=== PATIENT | male | born 1975 | race Two or more races ===

== ENCOUNTER 2016-08-10 16:17 | Observation (INO) | payer SELFPAY ==
[~2016-08-10] VITALS: Ht 170.2 cm; Wt 74.8 kg
[2016-08-10] MEDS ORDERED: DIPHTH,PERTUSS(ACELL),TET TOX 0.5 ML DISP.SYRIN. VAX IM ONE (16:45)
[2016-08-10] MEDS ORDERED: FENTANYL PF 100 MCG/2 ML VIAL. IV ONE (16:45)
--- NOTE | 2016-08-10 17:06 | RAD ---
Two-view study of the right knee History: Nail injury of right knee. Findings: A metallic nail is seen extending obliquely through the patella. The nail measures 8.7 cm in length. No acute fracture is evident. No dislocation or osteolytic process is seen. No significant swelling of the suprapatellar bursa is seen. IMPRESSION: Metallic nail is seen extending obliquely through the patella. No fracture is seen.
[2016-08-10] MEDS ORDERED: FENTANYL PF 100 MCG/2 ML VIAL. IV PRN ×3 (17:15→18:15)
--- NOTE | 2016-08-10 17:51 | PHYS DOC ---
Past Medical History Past Medical History: No Pertinent History Past Surgical History: No Surgical History Alcohol Use: None Drug Use: None Adult General Chief Complaint Chief Complaint: KNEE INJURY HPI HPI Patient is a 40 year old male who presents with with right knee pain after hitting his right knee within three-inch nail the nail gun. He was working just prior to arrival when the incident occurred. He has constant achy, severe pain that is worse with range of motion. He denies numbness, tingling, weakness, other injury. Thinks his last tetanus vaccine was greater than 10 years ago. Review of Systems Review of Systems Constitutional: Denies fever or chills [] Eyes: Denies change in visual acuity, redness, or eye pain [] HENT: Denies nasal congestion or sore throat [] Respiratory: Denies cough or shortness of breath [] Cardiovascular: No additional information not addressed in HPI [] GI: Denies abdominal pain, nausea, vomiting, bloody stools or diarrhea [] : Denies dysuria or hematuria [] Musculoskeletal: Denies back pain [] Integument: Denies rash or skin lesions [] Neurologic: Denies headache, focal weakness or sensory changes [] Endocrine: Denies polyuria or polydipsia [] Current Medications Current Medications Current Medications Medications (Trade) Dose Ordered Sig/Jacky Start Time Stop Time Status Last Admin Dose Admin Diphtheria/ Tetanus/Acell Pertussis (Boostrix) 0.5 ml ONCE ONCE 08/10/16 16:45 08/10/16 16:46 DC 08/10/16 16:50 0.5 ML Fentanyl Citrate (Fentanyl 2ml Vial) 75 mcg 1X ONCE 08/10/16 16:45 08/10/16 16:46 DC 08/10/16 16:46 75 MCG Allergies Allergies Allergies Coded Allergies Type Severity Reaction Last Updated Verified No Known Drug Allergies 08/10/16 No Physical Exam Physical Exam Constitutional: Well developed, well nourished, no acute distress, non-toxic appearance. [] HENT: Normocephalic, atraumatic, bilateral external ears normal, oropharynx moist, nose normal. [] Eyes: PERRLA, EOMI. [] Neck: Normal range of motion, supple. [] Cardiovascular:Heart rate regular rhythm [] Lungs & Thorax: Bilateral breath sounds clear to auscultation [] Abdomen: soft, no tenderness. [] Skin: Warm, dry, no erythema, no rash. [] Back: Normal range of motion. [] Extremities: Right knee with nail head superior/lateral and nail tip inferior/ medial at patella with no active bleeding or swelling; Able to flex/ex/IR/ER hip , knee range of motion not tested due to pain, ankle df/pf, toes df/pf; SILT an/ sa/sp/dp/tib distributions; good dp and pt pulses equal bilaterally Neurologic: Alert and oriented X 3, normal motor function, normal sensory function, no focal deficits noted. [] Psychologic: Affect normal, judgement normal, mood normal. [] Current Patient Data Vital Signs Vital Signs Date Time Temp Pulse Resp B/P Pulse Ox O2 Delivery O2 Flow Rate FiO2 08/10/16 17:00 77 12 126/70 97 Room Air 08/10/16 16:31 98.3 98.3 Radiology/Procedures Radiology/Procedures Right knee x-ray as interpreted by me with metallic foreign body extending through right patella with no obvious patella fracture Course & Med Decision Making Course & Med Decision Making Pertinent Labs and Imaging studies reviewed. (See chart for details) This case was initially a trauma alert due to penetrating proximal extremity injury. His findings are consistent with isolated orthopedic injury. I discussed case with Dr. Lujan, orthopedics, who agrees to admit to the operating room for surgery. Dragon Disclaimer Dragon Disclaimer This electronic medical record was generated, in whole or in part, using a voice recognition dictation system. Departure Departure Impression: Primary Impression: Patellar fracture Disposition: ADMITTED INPATIENT Condition: STABLE Referrals: NO PCP (PCP) Problem Qualifiers Primary Impression: Patellar fracture Encounter type: initial encounter Fracture type: open Open fracture type: open type I or II Fracture morphology: transverse Fracture alignment: nondisplaced Laterality: right Qualified Code: S82.034B - Nondisplaced transverse fracture of right patella, initial encounter for open fracture type I or II Phi CASTAÑEDA MD Aug 10, 2016 17:51
[2016-08-10] MEDS ORDERED: IV RINGERS,LACTATED 1000ML 1,000 ML IV SCH (18:02)
[2016-08-10] MEDS ORDERED: ONDANSETRON PF 4 MG/2 ML VIAL. ONE (18:04)
[2016-08-10] MEDS ORDERED: MIDAZOLAM HCL 2 MG/2 ML VIAL. ONE (18:04)
[2016-08-10] MEDS ORDERED: LIDOCAINE 2% 100 MG/5 ML DISP.SYRIN. ONE (18:04)
[2016-08-10] MEDS ORDERED: DEXAMETHASONE SOD PHOS 20 MG/5 ML VIAL. ONE (18:04)
[2016-08-10] MEDS ORDERED: PROPOFOL 20 ML IV ONE (18:04)
[2016-08-10] MEDS ORDERED: FENTANYL PF 100 MCG/2 ML VIAL. ONE (18:04)
[2016-08-10] MEDS ORDERED: ONDANSETRON PF 4 MG/2 ML VIAL. IV PRN (18:15)
[2016-08-10] MEDS ORDERED: LIDOCAINE 1% 1 ML SYRINGE. ID PRN (18:15)
[2016-08-10] MEDS ORDERED: HYDROMORPHONE 2 MG/ML VIAL. IV PRN (18:15)
[2016-08-10] MEDS ORDERED: PROCHLORPERAZINE 10 MG/2 ML VIAL. IV PRN (18:15)
[2016-08-10] MEDS ORDERED: SUCCINYLCHOLINE 200 MG/10 ML VIAL. ONE (18:20)
[2016-08-10] MEDS ORDERED: CEFAZOLIN 2GM PREMIX 50 ML IV ONE (18:27)
[2016-08-10] MEDS ORDERED: BUPIVACAINE-EPI 0.25%-1:200000 50 ML VIAL. ONE (18:48)
[2016-08-10] MEDS ORDERED: CEFAZOLIN 2GM PREMIX 50 ML IV PRN (19:00)
[2016-08-10] MEDS ORDERED: MORPHINE SULFATE 10 MG/ML VIAL. ONE (19:03)
--- NOTE | 2016-08-10 19:24 | PDOC ---
BRIEF OPERATIVE NOTE Date: Aug 10, 2016 Pre-Op Diagnosis Nail (foreign body) right knee Post-Op Diagnosis same Procedure Performed Removal FB and i/d right knee Surgeon Tai Anesthesia Type: General Blood Loss 10cc Specimens Obtained nail to pathology Findings above Complications none NERIS POWELL MD Aug 10, 2016 19:24
--- NOTE | 2016-08-10 19:26 | DISCH ---
DISCHARGE INSTRUCTIONS Condition on Discharge Condition on Discharge: Stable Activity After Discharge Activity Instructions for Disc: Other, see below Other activity instructions: activity as tolerated, return to work 08/14/16 Diet after Discharge Diet after Discharge: Regular Wound Incision Care Wound/Incision Care: Ice to area for comfort, Keep wound elevated Other wound/incision instructi: remove dressing 2 days may then shower Contacting the DR. after DC Call your doctor for: Concerns you may have Follow-Up Follow up with: Tai 5-7 days Treatment/Equipment after DC Adaptive Equipment Issued: NERIS Kellogg MD Aug 10, 2016 19:25
[2016-08-10] MEDS ORDERED: CEPH-264 PO (19:28)
[2016-08-10] MEDS ORDERED: HYDR-965 PO (19:28)
[2016-08-10] MEDS: MORPHINE SULFATE 2 MG/ML DISP.SYRIN. IV PRN ×3 (19:43→20:06)
[2016-08-10] MEDS ORDERED: HYDROCODONE/APAP 7.5/325MG TABLET. PO PRN (20:00)
[2016-08-10 20:06] VITALS: BP 146/77
--- NOTE | 2016-08-10 21:39 | OP ---
DATE OF SURGERY: 08/10/2016 PREOPERATIVE DIAGNOSIS: Foreign body, right knee, nail. POSTOPERATIVE DIAGNOSIS: Nail through the middle of right patella with extension into the knee joint. No fracture. PROCEDURE: Removal of foreign body. Irrigation and debridement of right knee. SURGEON: Dilan Lujan M.D. ANESTHESIA: General. ESTIMATED BLOOD LOSS: 15 mL. COMPLICATIONS: None. OPERATIVE INDICATIONS: The patient is a 40-year-old Serbian speaking male who was injured on the job today where nail gone discharged into his right knee. He was seen through [facility]. The nail went through his clothing. On evaluation, I had indicated to him through the use of an priming machine operator that nail went through the kneecap and was not able to be readily pulled out. Talked about the increased risk of infection, just due to the contamination from that closed. The removal of the nail as well as washout of the knee joint to minimize chance of infection with antibiotics to follow. All his questions were answered, informed consent was obtained and he agrees to proceed with operative evaluation and treatment. DESCRIPTION OF PROCEDURE: The patient was identified, procedure verified, patient placed in supine position on the operating table. After adequate amounts of general endotracheal anesthesia were administered, the right lower extremity was prepped and draped in standard sterile fashion, although the knee was clearly identified, the nail was clearly identified with head superior lateral to the knee and the protruding end of the nail inferomedial going through the center of the bony portion of patella. The nail was very solidly impacted. ____ with grasping the distal portion of nail ____and twisting somewhat to attempt to dislodge and then later grabbing the head of the nail and backing it out in reverse given that it did not have any barbs on the nail that would prevent removal in that manner. The nail along with the glue strips used to attach it to the rest of the coil was removed intact. Incisions were made from the nail entry and exit points then and overlying skin aside from the trauma was noted to be intact around the area, some of up subcutaneous tissue was debrided sharply with a rongeur allowing extensive irrigation with pulse lavage at the tract of the nail. No gross contamination aside from at the nail head itself was really noted in the tissues and after sharp debridement with rongeurs skin and subcutaneous tissue and extensive washout with liter of saline solution and pulse lavage. The longitudinal incisions were closed likely with nylon suture. Sterile dressings were applied. The patient was extubated and transferred to postop holding in stable condition having tolerated the procedure well with a planned postoperative course of 500 mg Keflex four times a day x 5 days. Follow up in 5-7 days and off work was given until Sunday with expected work restrictions to be evaluated in his reevaluation. DILAN LUJAN MD DR: AUDRA/jess JOB#: [id number] / [id number]
--- NOTE | 2016-08-11 02:30 | CONS ---
DATE OF CONSULTATION: 08/10/2016 PHYSICIAN REQUESTING CONSULTATION: Álvaro Abbasi M.D. REASON FOR CONSULTATION: Foreign body of right knee. HISTORY OF PRESENT ILLNESS: The patient is a 40-year-old male who was at work today when a framing nailer went off and went into his right knee. His workmates attempted to pull the nail out but were unable to. The Emergency Department cut his clothes off around the area and verified under x-ray that it traverses diagonally through the patella and is very solidly fixed. PAST MEDICAL AND SURGICAL HISTORY: The patient denies any past medical or surgical history. SOCIAL HISTORY: Denies smoking, alcohol or drug use. ALLERGIES: He has no known drug allergies. MEDICATIONS: No current medications. REVIEW OF SYSTEMS: He is unaware when he got his last tetanus, which was updated today in the Emergency Department. He denies any constitutional symptoms including fever, chills, chest pain, shortness of breath, visual changes, abdominal pain, focal weakness, numbness or tingling. Only significant really for right knee pain. PHYSICAL EXAMINATION: VITAL SIGNS: Temperature 100.9, pulse 80, respirations 18, blood pressure 128/76 and 97% saturation on room air. HEENT: Atraumatic, normocephalic. HEART: Regular rate and rhythm. LUNGS: Clear to auscultation bilaterally. ABDOMEN: Benign. EXTREMITIES: Examination of the right knee reveals extreme tenderness on any attempts at range of motion. The nail head is superolateral traversing diagonally through the center of the patella to anteromedially and does penetrate the joint surface into the infrapatellar fat pad area. There is no evidence of fracture associated or other bony abnormality as his joint spaces are well maintained. The remainder of the examination of the knee is limited secondary to the pain with the nail, but he has normal stability and alignment and normal examination of the contralateral knee, bilateral hips and ankles with intact motor function, distal pulses, sensation, reflexes and skin in both lower extremities throughout with the exception of the skin defect created by the passage of the nail and the head of the nail indenting on the skin superolaterally to the patella. X-RAYS: Findings are noted as above. IMPRESSION: Nail traversing through the patellar bone without fracture. TREATMENT PLAN: I conducted this interview with the assistance of an precision grinder external that was present and obtained his medical history through that help. All the patient's questions were answered. I described to him the fact that the nail has gone into his knee joint and gives an increased risk of infection as a result. There appeared to be no barbs in the nail, which would hopefully allow it to be pulled backward along its course. I in addition to washing this area out to minimize any bacteria along the course would place him on some antibiotics postoperatively, but there would be an increased risk of infection due to bacteria from the skin or clothing being dragged through into the bone and potentially into the knee and communication with the knee joint itself. Therefore, if worsening symptoms may develop despite the treatment here, he may need to undergo additional procedures or antibiotics and could have complications associated with that. Otherwise, we plan emergently to take him to the operating room for removal of the nail, irrigation and debridement as the patient is n.p.o. since approximately noon today. Again, all his questions were answered through the precision grinder external, and informed consent was obtained and we are proceeding with emergent surgery at this point. NERIS POWELL MD DR: AUDRA/jess JOB#: [id number] / [id number]
--- NOTE | 2016-08-11 17:30 | PATHOLOGY ---
PATHOLOGY REPORT * * * * * * * * FINAL DIAGNOSIS: Foreign body nail (Gross only). (JPM:; d/t: 08/11/16) REPORT ELECTRONICALLY SIGNED BY: Margarito Chen M.D. DATE/TIME: 08/11/2016 17:30 * * * * * * * * GROSS PATHOLOGY: The specimen is received fresh, labeled "Shayan King, foreign-body R knee". Received is a ayala piece of metal, consistent with a nail, measuring 7.5 cm in length and ranging in diameter from 0.3 to 0.6 cm. A gross photograph is taken. Sections are not submitted. (CAA; 08/11/2016) INITIAL CPT CODE(S): A; 20369 Professional services performed [place] [address] Technical services performed by [facility] at [address] [place] [address]. SPECIMEN(S) RECEIVED: A.Foreign body right knee CLINICAL HISTORY: FB right knee PATIENT: SHAYAN KING /AGE: 512/02/1975 (Age: 40) PATIENT #: [id number] ALT CASE #: SPECIMEN COLLECTION DATE: 08/10/2016 SPECIMEN RECEIVED DATE: 08/11/2016 [facility] - [address] [place] [address] - PHONE: [phone] * * * END OF REPORT * * *
--- NOTE | 2016-08-15 10:37 | HP ---
ADMIT DATE: 08/10/2016 PHYSICIAN REQUESTING CONSULTATION: Álvaro Abbasi M.D. REASON FOR CONSULTATION: Foreign body of right knee. HISTORY OF PRESENT ILLNESS: The patient is a 40-year-old male who was at work today when a framing nailer went off and went into his right knee. His workmates attempted to pull the nail out but were unable to. The Emergency Department cut his clothes off around the area and verified under x-ray that it traverses diagonally through the patella and is very solidly fixed. PAST MEDICAL AND SURGICAL HISTORY: The patient denies any past medical or surgical history. SOCIAL HISTORY: Denies smoking, alcohol or drug use. ALLERGIES: He has no known drug allergies. MEDICATIONS: No current medications. REVIEW OF SYSTEMS: He is unaware when he got his last tetanus, which was updated today in the Emergency Department. He denies any constitutional symptoms including fever, chills, chest pain, shortness of breath, visual changes, abdominal pain, focal weakness, numbness or tingling. Only significant really for right knee pain. PHYSICAL EXAMINATION: VITAL SIGNS: Temperature 100.9, pulse 80, respirations 18, blood pressure 128/76 and 97% saturation on room air. HEENT: Atraumatic, normocephalic. HEART: Regular rate and rhythm. LUNGS: Clear to auscultation bilaterally. ABDOMEN: Benign. EXTREMITIES: Examination of the right knee reveals extreme tenderness on any attempts at range of motion. The nail head is superolateral traversing diagonally through the center of the patella to anteromedially and does penetrate the joint surface into the infrapatellar fat pad area. There is no evidence of fracture associated or other bony abnormality as his joint spaces are well maintained. The remainder of the examination of the knee is limited secondary to the pain with the nail, but he has normal stability and alignment and normal examination of the contralateral knee, bilateral hips and ankles with intact motor function, distal pulses, sensation, reflexes and skin in both lower extremities throughout with the exception of the skin defect created by the passage of the nail and the head of the nail indenting on the skin superolaterally to the patella. X-RAYS: Findings are noted as above. IMPRESSION: Nail traversing through the patellar bone without fracture. TREATMENT PLAN: I conducted this interview with the assistance of an medical interpreter that was present and obtained his medical history through that help. All the patient's questions were answered. I described to him the fact that the nail has gone into his knee joint and gives an increased risk of infection as a result. There appeared to be no barbs in the nail, which would hopefully allow it to be pulled backward along its course. I in addition to washing this area out to minimize any bacteria along the course would place him on some antibiotics postoperatively, but there would be an increased risk of infection due to bacteria from the skin or clothing being dragged through into the bone and potentially into the knee and communication with the knee joint itself. Therefore, if worsening symptoms may develop despite the treatment here, he may need to undergo additional procedures or antibiotics and could have complications associated with that. Otherwise, we plan emergently to take him to the operating room for removal of the nail, irrigation and debridement as the patient is n.p.o. since approximately noon today. Again, all his questions were answered through the medical interpreter, and informed consent was obtained and we are proceeding with emergent surgery at this point. NERIS POWELL MD DR: AUDRA/jess JOB#: [id number] / [id number]
== END 2016-08-10 19:00 | disposition home or self-care (01) ==
LOC: ER 16:17 → 4 NORTH 17:00
PROVIDERS: ADMIT Orthopaedic Surgery; ATTEND Orthopaedic Surgery
DX: S80.251A Superficial foreign body, right knee, initial encounter (principal); S82.009A Unspecified fracture of unspecified patella, initial encounter for closed fracture; W45.0XXA Nail entering through skin, initial encounter; Y93.89 Activity, other specified; Y92.69 Other specified industrial and construction area as the place of occurrence of the external cause; Y99.8 Other external cause status
CPT/HCPCS: 20103; 73560; 88300; 90471; 90715; 96374; 96376; 99285; G0378; J0330; J0690; J0780; J1100; J2250; J2270; J2405; J2704; J3010; J7030; G0379